=== PATIENT | female | born 1945 | race Caucasian/White ===

== ENCOUNTER 2018-12-31 16:28 | Emergency (ER) | payer OTHER ==
[~2018-12-31] VITALS: Ht 152.4 cm; Wt 77.1 kg
[2018-12-31] MEDS ORDERED: XARELTO10 MG PO (16:33)
[2018-12-31] MEDS ORDERED: ATORVASTATIN CA10 MG PO (16:33)
[2018-12-31] MEDS ORDERED: ZESTRIL2.5 MG (16:34)
[2018-12-31] MEDS ORDERED: AMITRIPTYLINE H25 MG (16:34)
== END 2018-12-31 19:25 | disposition home or self-care (01) ==
LOC: ER 16:28
DX: K58.8 Other irritable bowel syndrome (principal)